=== PATIENT | male | born 1955 | race Caucasian/White ===

== ENCOUNTER → 2017-02-27 | Outpatient (CLI) | payer MEDICARE ==
--- NOTE | 2017-02-27 13:11 | CTL ---
EXAMINATION TYPE: CT Low Dose Lung DATE OF EXAM ORDERED: 02/27/2017 HISTORY: 62-year-old male history of tobacco use. Lung cancer screening CT DLP: 82.[address] CTDI: 2.30 mGy Automated exposure control for dose reduction was used. SCREENING VISIT: Baseline COMPARISON: None TECHNIQUE: Low dose computed tomography scan was performed through the chest at 1 mm thick sections a nd reconstructed images in the coronal plane at [address] DIAGNOSTIC QUALITY: Satisfactory FINDINGS: The heart is normal size without pericardial effusion. Coronary vessel calcifications are present in remarkable for coronary artery disease. Aorta is normal caliber with a conventional vessel branching anatomy and mild atherosclerotic arch ca lcifications. Trace bilateral gynecomastia. Scattered nonenlarged mediastinal lymph nodes are present measuring up to 7 mm. No thoracic lymphadenopathy seen. Evaluation of the lungs shows very mild emphysematous change. No consolidation or pleural effusion. There were some strandy secretions within the right mainstem bronchus. - 4 mm anterior right midlung pulmonary nodule along the minor fissure axial image 123. - Tiny punctate 2 mm pulmonary nodule peripheral right midlung along the major fissure axial image 14 2. - 5 mm peripheral right midlung pulmonary nodule axial image 167. - 4 mm subpleural pulmonary nodule peripheral left lower lobe axial image 186. Visualized upper abdomen shows no gross body. Bones: No osseous destructive process. IMPRESSION: 1. Lung-RADS category 2 -- benign appearance; a few scattered 5 mm and smaller pulmonary nodules on b aseline. 2. Mild emphysema and CAD. RECOMMENDATION: 1. Continue annual screening with low dose CT. 2. Smoking cessation.
== END | disposition home or self-care (01) ==
LOC: RADCTMAIN 11:55
PROVIDERS: ATTEND Family Medicine
DX: Z12.2 Encounter for screening for malignant neoplasm of respiratory organs (principal); I25.10 Atherosclerotic heart disease of native coronary artery without angina pectoris; J43.9 Emphysema, unspecified; R91.8 Other nonspecific abnormal finding of lung field; Z87.891 Personal history of nicotine dependence

== ENCOUNTER 2018-11-06 07:04 | Day surgery (SDC) | payer MEDICARE ==
[2018-11-04 11:52] VITALS: BMI 26.2
[~2018-11-06 07:04] MED LIST: LACTATED RINGERS 1,000 ML IV SCH
[2018-11-06 07:25] VITALS: TEMP 97.2
[2018-11-06 07:40] LABS: Glucose,Whole Blood 90 mg/dL (75-99)
[2018-11-06] MEDS ORDERED: fentaNYL (PF) 50 MCG/ML 2 ML AMP ONE (07:50)
[2018-11-06] MEDS ORDERED: PROPOFOL 10 MG/ML 20 ML VIAL IV ONE (07:50)
[2018-11-06] MEDS ORDERED: MIDAZOLAM 2 MG/2 ML VIAL ONE (07:50)
--- NOTE | 2018-11-06 07:53 | P.GSHP ---
History of Present Illness H&P Date: 11/06/18 Chief Complaint: Screening colonoscopy This is a 63-year-old male who presents today for screening colonoscopy. Patient denies a significant GI complaints. 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 LT ROTATOR CUFF REPAIR. BILAT TRIGGER FINGER. LT SURGERY CHILD AGE 3 Past Anesthesia/Blood Transfusion Reactions: No Reported Reaction Smoking Status: Current every day smoker - Past Family History Mother Family Medical History: No Reported History Medications and Allergies Home Medications Medication Instructions Recorded Confirmed Type Aspirin [Adult Low Dose Aspirin EC] 81 mg PO DAILY 11/04/18 11/06/18 History Atorvastatin [Lipitor] 40 mg PO HS 11/04/18 11/06/18 History Baclofen [Lioresal] 20 mg PO HS 11/04/18 11/06/18 History Diclofenac Sodium [Voltaren] 75 mg PO DAILY 11/04/18 11/06/18 History Gabapentin 600 mg PO TID 11/04/18 11/06/18 History Lisinopril [Zestril] 2.5 mg PO DAILY 11/04/18 11/06/18 History Morphine Sulfate [Morphabond ER] 30 mg PO Q12H 11/04/18 11/06/18 History metFORMIN HCL 1,000 mg PO AC-SUPPER 11/04/18 11/06/18 History Allergies Allergy/AdvReac Type Severity Reaction Status Date / Time No Known Allergies Allergy Verified 11/04/18 11:42 Surgical - Exam Vital Signs Temp Pulse Resp BP Pulse Ox 97.2 F L 81 14 161/81 99 11/06/18 07:24 11/06/18 07:24 11/06/18 07:24 11/06/18 07:24 11/06/18 07:24 - General well developed, well nourished, no distress - Eyes PERRL - ENT normal pinna - Neck no masses - Respiratory normal expansion - Cardiovascular Rhythm: regular - Abdomen Abdomen: soft, non tender Assessment and Plan Assessment: We'll perform screening colonoscopy.
--- NOTE | 2018-11-06 08:05 | P.OP ---
Date of Procedure: 11/06/18 Preoperative Diagnosis: Screening colonoscopy Postoperative Diagnosis: External hemorrhoids Mild diverticulosis Procedure(s) Performed: Colonoscopy Anesthesia: MAC Surgeon: Brian Guzmán Pathology: none sent Condition: stable Disposition: PACU Description of Procedure: The patient's placed on the endoscopy table in the lateral position. He received IV sedation. Digital rectal exam was performed which revealed no abnormalities. Flexible colonoscope was then placed patient anus passed throughout the entire colon. The ileocecal valve was visualized. The cecum, ascending and transverse colon appeared normal. In the descending; was mild diverticular changes. Scope was then brought back the rectum and this appeared normal. Scope was withdrawn for patient. And the internal and external hemorrhoids were noted.
[2018-11-06 08:37] VITALS: BP 123/75; PULSE 69; RESP 18
== END 2018-11-06 08:50 | disposition home or self-care (01) ==
LOC: ORWHC2ENDO 07:04
PROVIDERS: ATTEND Surgery
DX: Z12.11 Encounter for screening for malignant neoplasm of colon (principal); K57.90 Diverticulosis of intestine, part unspecified, without perforation or abscess without bleeding; K64.8 Other hemorrhoids; K64.4 Residual hemorrhoidal skin tags; I10 Essential (primary) hypertension; E78.5 Hyperlipidemia, unspecified; E11.9 Type 2 diabetes mellitus without complications; F17.200 Nicotine dependence, unspecified, uncomplicated; G35 Multiple sclerosis; Z79.84 Long term (current) use of oral hypoglycemic drugs; Z79.82 Long term (current) use of aspirin; Z79.899 Other long term (current) drug therapy; Z79.1 Long term (current) use of non-steroidal anti-inflammatories (NSAID); Z79.891 Long term (current) use of opiate analgesic
CPT/HCPCS: J2250; J3010; J2704; G0121; 45378

== ENCOUNTER → 2019-03-03 | Day surgery (SDC) | payer MEDICARE ==
[~2019-03-03] MED LIST changes: +LIDOCAINE 1% 20 ML VIAL (10MG/ML) FOR IV START INTRADERMA PRN; +LIDOCAINE 1% INJ 10MG/ML (20 ML MDV) ONE; +PROPOFOL 10 MG/ML 20 ML VIAL IV ONE
[2019-03-03 08:26] VITALS: RESP 16; TEMP 97.3
[2019-03-03 08:41] LABS: Glucose,Whole Blood 105 mg/dL (75-99)
--- NOTE | 2019-03-03 09:06 | P.GSHP ---
History of Present Illness H&P Date: 03/03/19 Chief Complaint: Peptic ulcer disease This is a 64-year-old male who presents today for EGD. Patient history of peptic ulcer disease. 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 LT ROTATOR CUFF REPAIR. BILAT TRIGGER FINGER. LT SURGERY CHILD AGE 3 Past Anesthesia/Blood Transfusion Reactions: No Reported Reaction Past Psychological History: No Psychological Hx Reported Smoking Status: Current every day smoker Past Alcohol Use History: Rare Additional Past Alcohol Use History / Comment(s): SMOKES ABOUT .5 PPD, SINCE AGE 11 Past Drug Use History: Marijuana Additional Drug Use History / Comment(s): WILL MAYBE TAKE A "HIT" ONCE IN A WHILE. INSTRUCTED TO REFRAIN FROM USE FOR AT LEAST 24 HOURS PRIOR TO PROCEDURE - Past Family History Mother Family Medical History: No Reported History Medications and Allergies Home Medications Medication Instructions Recorded Confirmed Type Aspirin [Adult Low Dose Aspirin EC] 81 mg PO DAILY 11/04/18 02/26/19 History Atorvastatin [Lipitor] 40 mg PO HS 11/04/18 03/03/19 History Baclofen [Lioresal] 20 mg PO HS 11/04/18 03/03/19 History Gabapentin 600 mg PO TID 11/04/18 03/03/19 History Lisinopril [Zestril] 2.5 mg PO QAM 11/04/18 02/26/19 History Morphine Sulfate [Morphabond ER] 30 mg PO Q12H 11/04/18 03/03/19 History metFORMIN HCL 1,000 mg PO AC-SUPPER 11/04/18 03/03/19 History Ferrous Sulfate [Iron (65 MG 1 tab PO DAILY 02/26/19 02/26/19 History Elemental)] Multivitamins, Thera [Multivitamin 1 tab PO DAILY 02/26/19 02/26/19 History (formulary)] predniSONE 10 mg PO DIRECTED 02/26/19 02/26/19 History traMADol HCL [Ultram] 50 mg PO QID 02/26/19 03/03/19 History Allergies Allergy/AdvReac Type Severity Reaction Status Date / Time No Known Allergies Allergy Verified 02/26/19 16:44 Surgical - Exam Vital Signs Temp Pulse Resp BP Pulse Ox 97.3 F L 66 16 127/63 98 03/03/19 08:19 03/03/19 08:19 03/03/19 08:19 03/03/19 08:19 03/03/19 08:19 - General well developed, well nourished, no distress - Eyes PERRL - ENT normal pinna - Neck no masses - Respiratory normal expansion - Cardiovascular Rhythm: regular - Abdomen Abdomen: soft, non tender Results - Labs Abnormal Lab Results - Last 24 Hours (Table) 03/03/19 Range/Units 08:23 POC Glucose (mg/dL) 105 H (75-99) mg/dL Assessment and Plan Assessment: History of peptic ulcer disease. We'll perform EGD.
--- NOTE | 2019-03-03 09:12 | P.OP ---
Date of Procedure: 03/03/19 Preoperative Diagnosis: Peptic ulcer disease Postoperative Diagnosis: Duodenitis Procedure(s) Performed: EGD Anesthesia: MAC Surgeon: Brian Guzmán Pathology: other (Duodenitis) Condition: stable Disposition: PACU Description of Procedure: Patient's placed on the endoscopy table in the lateral position. He received IV sedation. The gastroscope placed oropharynx and passed in the esophagus and into the stomach. Scope was then placed through the pylorus. The first and second portion of the duodenum appeared inflamed. This area is biopsied. There is no definite ulcer. There was mild duodenitis. Scope summer back the antrum this appeared normal. Scope was then retroflexed remainder stomach appeared normal. The GE junction was at 40 cm. There is no significant hiatal hernia. The distal esophagus appeared normal. The proximal esophagus.. Scope withdrawn for patient.
[2019-03-03 09:35] VITALS: BP 103/69; PULSE 81
== END | disposition home or self-care (01) ==
LOC: ORWHC2ENDO 07:57
PROVIDERS: ATTEND Surgery
DX: K29.80 Duodenitis without bleeding (principal); E11.9 Type 2 diabetes mellitus without complications; E78.5 Hyperlipidemia, unspecified; F17.200 Nicotine dependence, unspecified, uncomplicated; I10 Essential (primary) hypertension; K31.89 Other diseases of stomach and duodenum; Z79.82 Long term (current) use of aspirin; Z87.11 Personal history of peptic ulcer disease; Z79.84 Long term (current) use of oral hypoglycemic drugs; Z79.899 Other long term (current) drug therapy; Z79.891 Long term (current) use of opiate analgesic
CPT/HCPCS: 88305; 43239; J2001; J2704

== ENCOUNTER → 2020-09-25 | Outpatient (CLI) | payer MEDICARE ==
--- NOTE | 2020-09-26 06:09 | CTL ---
EXAMINATION TYPE: CT Low Dose Lung DATE OF EXAM ORDERED: 09/25/2020 HISTORY: Long-term tobacco use. Lung cancer screening CT DLP: 101.[address] CTDI: 2.8 mGy Automated exposure control for dose reduction was used. SCREENING VISIT: First study after baseline COMPARISON: Prior CT February 27, 2017 TECHNIQUE: Low dose computed tomography scan was performed through the chest at 1 mm thick sections a nd reconstructed images in the coronal plane at [address] DIAGNOSTIC QUALITY: Satisfactory FINDINGS: LUNG NODULES: Present, detailed below: Scattered micronodules and tiny nodules redemonstrated. For reference there is stable 5 x 3 mm pleura l nodule laterally right mid lung axial image 158. For reference there is 4 to 5 mm subpleural left l ower lobe nodule axial image 187. No new or enlarging greater than 5 mm pulmonary nodules. LUNGS: COPD: Severity: Mild Fibrosis: Severity: None Lymph nodes: No greater than 1 cm Other findings: None RIGHT PLEURAL SPACE: Effusion: None Calcification: None Thickening: None Pneumothorax: None LEFT PLEURAL SPACE: Effusion: None Calcification: None Thickening: None Pneumothorax: None HEART: Heart Size: Normal Coronary calcification: Moderate to severe three-vessel Pericardial effusion: None OTHER FINDINGS: Upper abdomen: None Bony thorax: None Supraclavicular region: None Other: None IMPRESSION: Mild emphysematous change with stable scattered micronodules and tiny nodules. No new or enlarging greater than [address] LUNG RAD AND CT CHEST RECOMMENDATION: Lung-Rad 2 Benign Appearance or Behavior: Continue annual sc reening with LDCT in 12 months. S Modifier (other clinically significant findings): S Moderate to severe three-vessel coronary artery calcification. Noted marker for underlying coronary a rtery disease. Clinical correlation and correlation with additional cardiac risk factors advised.
== END | disposition home or self-care (01) ==
LOC: RADCTMAIN 17:19
PROVIDERS: ATTEND Family Medicine
DX: Z12.2 Encounter for screening for malignant neoplasm of respiratory organs (principal); R91.8 Other nonspecific abnormal finding of lung field; Z87.891 Personal history of nicotine dependence
CPT/HCPCS: 71271

== ENCOUNTER → 2022-12-04 | Outpatient (CLI) | payer MEDICARE ==
--- NOTE | 2022-12-04 08:51 | CTL ---
EXAMINATION TYPE: CT Low Dose Lung DATE OF EXAM ORDERED: 12/04/2022 HISTORY: [id number]. Lung cancer screening CT DLP: 74.[address] CTDI: 2.0 mGy Automated exposure control for dose reduction was used. SCREENING VISIT: Follow-up COMPARISON: CT low-dose lung cancer screening 09/25/2020, 02/27/2017 TECHNIQUE: Low dose computed tomography scan was performed through the chest at 1 mm thick sections a nd reconstructed images in multiple planes at 1 mm and [address] DIAGNOSTIC QUALITY: Satisfactory FINDINGS: LUNG NODULES: Scattered micronodules and tiny nodules redemonstrated. Largest is a stable 5 x 3 mm pleural nodule l aterally along the right lower lobe (series 4, image 162). No new or enlarging greater than 5 mm pulm onary nodules. LUNGS: COPD: Severity: Mild Fibrosis: Severity: None Lymph nodes: None Other findings: None RIGHT PLEURAL SPACE: Effusion: None Calcification: None Thickening: None Pneumothorax: None LEFT PLEURAL SPACE: Effusion: None Calcification: None Thickening: None Pneumothorax: None HEART: Heart Size: Normal Coronary Calcification: Moderate Pericardial Effusion: None OTHER FINDINGS: Upper abdomen: None Bony thorax: None Supraclavicular region: None Other: None IMPRESSION: 1. Stable scattered micronodules and tiny nodules. No new or enlarging greater than 5 mm pulmonary no dules. 2. Mild emphysematous changes. CT LUNG RAD AND CT CHEST RECOMMENDATION: Lung-Rad 2 Benign Appearance or Behavior: Continue annual sc reening with LDCT in 12 months.
== END | disposition home or self-care (01) ==
LOC: RADCTMAIN 07:57
PROVIDERS: ATTEND Family Medicine
DX: Z12.2 Encounter for screening for malignant neoplasm of respiratory organs (principal); J43.9 Emphysema, unspecified; R91.8 Other nonspecific abnormal finding of lung field; F17.210 Nicotine dependence, cigarettes, uncomplicated
CPT/HCPCS: 71271